=== PATIENT | male | born 1990 | race Caucasian/White ===

== ENCOUNTER 2024-10-01 07:02 | Day surgery (SDC) | payer OTHER ==
[~2024-10-01] VITALS: Ht 170.2 cm; Wt 186.4 kg
[~2024-10-01 07:02] MED LIST: PROPOFOL 1% 20 ML VIAL IVP ONE; SODIUM CHLORIDE 0.9% 1,000 ML ONE
[2024-10-01] MEDS: SODIUM CHLORIDE 0.9% 1,000 ML IV ONE (07:59)
[2024-10-01 08:06] LABS: GLUCOMETER DEV NAME(LOC) SDS.; GLUCOSE,POINT OF CARE 282 MG/DL (70-110)
[2024-10-01] MEDS ORDERED: OXYGEN THERAPY IH SCH ×2 (20:00)
== END 2024-10-01 09:40 | disposition home or self-care (01) ==
LOC: SURGERY 07:02
PROVIDERS: ATTEND Specialist
DX: R19.4 Change in bowel habit (principal); K60.2 Anal fissure, unspecified; K64.0 First degree hemorrhoids; E11.9 Type 2 diabetes mellitus without complications; K62.89 Other specified diseases of anus and rectum; I10 Essential (primary) hypertension; K21.9 Gastro-esophageal reflux disease without esophagitis; I50.9 Heart failure, unspecified; Z72.89 Other problems related to lifestyle; Z20.822 Contact with and (suspected) exposure to COVID-19; Z79.899 Other long term (current) drug therapy
CPT/HCPCS: 45378; 93005; 82962; J2704; J7030